=== PATIENT | female | born 1995 | race Native Hawaiian/Other Pacific Islander ===

== ENCOUNTER 2016-07-27 17:58 | Inpatient (IN) | payer OTHER ==
[~2016-07-27] VITALS: Ht 165.1 cm; Wt 79.8 kg
[2016-07-27] MEDS ORDERED: METHYLERGONOVINE 0.2 MG/ML AMP IM PRN (19:20)
[2016-07-27] MEDS ORDERED: PROMETHAZINE 25 MG/ML VIAL IVP PRN (19:20)
[2016-07-27] MEDS ORDERED: OXYTOCIN 10 UNITS/ML VIAL IM SCH (19:20)
[2016-07-27] MEDS ORDERED: CARBOPROST 250 MCG/ML AMP IM PRN (19:20)
[2016-07-27] MEDS ORDERED: NALBUPHINE HYDROCHLORIDE 10 MG/ML VIAL IVP PRN (19:20)
[2016-07-27] MEDS ORDERED: NEPHRO-VITE VIT1 TAB PO (19:27)
[2016-07-27] MEDS ORDERED: PRENATAL VITAMI1 TA2 PO (19:27)
[2016-07-27] MEDS ORDERED: NATURAL IRON65 MG PO (19:27)
[2016-07-27 19:41] VITALS: BP 119/73
[2016-07-27] MEDS ORDERED: OXYTOCIN 20 UNITS/LR PREMIX 1,000 ML IV SCH (20:00)
[2016-07-27] MEDS: LACTATED RINGERS 1,000 ML IV SCH (20:55)
[2016-07-27] MEDS ORDERED: MISOPROSTOL 25 MCG TAB ONE (21:16)
[2016-07-28] MEDS ORDERED: ROPIVACAINE 0.2%/NS PREMIX 250 ML EPI ONE (02:18)
[2016-07-28] MEDS: LACTATED RINGERS 1,000 ML IV SCH ×3 (02:31→11:15)
[2016-07-28] MEDS ORDERED: ROPIVACAINE 0.2%/NS PREMIX 250 ML EPI SCH (02:35)
[2016-07-28] MEDS ORDERED: MISOPROSTOL 25 MCG TAB VG PRN (02:35)
[2016-07-28] MEDS ORDERED: OXYTOCIN 10 UNITS/ML VIAL ONE ×2 (03:44→10:57)
[2016-07-28] MEDS ORDERED: OXYTOCIN 20 UNITS/LR PREMIX 1,000 ML IV ONE (07:55)
--- NOTE | 2016-07-28 08:34 | NUR ---
PATIENT HAS BEEN SCREENED AND CATEGORIZED LOW NUTRITION RISK. PATIENT WILL BE SEEN WITHIN 7 DAYS OF ADMISSION. 08/03/[address]
[2016-07-28] MEDS ORDERED: MEASLES, MUMPS, AND RUBELLA 1 VIAL SQVAC PRN (15:25)
[2016-07-28] MEDS ORDERED: IBUPROFEN 800 MG TAB PO PRN (15:25)
[2016-07-28] MEDS ORDERED: WITCH HAZEL 40 PAD PACKAGE TP PRN (15:25)
[2016-07-28] MEDS ORDERED: oxyCODONE/APAP 5/325 MG 1 TAB TAB PO PRN (15:25)
[2016-07-28] MEDS ORDERED: METHYLERGONOVINE 0.2 MG/ML AMP IM PRN (15:25)
[2016-07-28] MEDS ORDERED: HYDROcodone/APAP 5/325 MG 1 TAB TAB PO PRN (15:25)
[2016-07-28] MEDS ORDERED: OXYTOCIN 10 UNITS/ML VIAL IM PRN (15:25)
[2016-07-28] MEDS ORDERED: TEMAZEPAM 15 MG CAP PO PRN (15:25)
[2016-07-28] MEDS ORDERED: BENZOCAINE/MENTHOL 20%-0.5% 60 GM CAN TP PRN (15:25)
[2016-07-28] MEDS ORDERED: DOCUSATE SOD/SENNA 50/8.6 MG 1 TAB PO SCH (21:00)
--- NOTE | 2016-07-29 13:06 | NUR ---
CM NOTE OB DELIVERY & REVIEW FAXED TO [facility] / FAX# [phone], ATTN: TISHA #[phone] [id number]
[2016-07-30] MEDS ORDERED: MOTRIN600 MG PO (11:06)
== END 2016-07-30 12:15 | disposition home or self-care (01) | DRG 560 ==
LOC: MFCC 17:58 → MLD 18:16 → MFCC 07-28 14:10
PROVIDERS: ADMIT Obstetrics & Gynecology; ATTEND Obstetrics & Gynecology
PROC: 10E0XZZ Delivery of Products of Conception, External Approach (ICD-10-PCS; principal; 2016-07-28)
PROC: 0W8NXZZ Division of Female Perineum, External Approach (ICD-10-PCS; 2016-07-28)
DX: O80 Encounter for full-term uncomplicated delivery (principal); Z37.0 Single live birth; Z3A.39 39 weeks gestation of pregnancy